=== PATIENT | female | born 1995 | race African-American/Black ===

== ENCOUNTER 2017-01-23 04:40 | Inpatient (IN) ==
[2017-01-23 05:15] LABS: URINE SOURCE VOIDED
[2017-01-23 05:25] LABS: BILIRUBIN URINE NEGATIVE (NEGATIVE); BLOOD URINE NEGATIVE (NEGATIVE); CLARITY CLEAR (CLEAR); COLOR YELLOW; GLUCOSE URINE NEGATIVE (NEGATIVE); LEUKOCYTES URINE TRACE (NEGATIVE); NITRITE URINE NEGATIVE (NEGATIVE); PROTEIN URINE NEGATIVE (NEGATIVE); UROBILINOGEN URINE NORMAL
[2017-01-23 05:26] LABS: UR AMPHETAMINES QUAL NONE DETECTED (NONE DETECT); UR BARBITUATES QUAL NONE DETECTED (NONE DETECT); UR BENZODIAZEPIN QUAL NONE DETECTED (NONE DETECT); UR CANNABINOIDS QUAL NONE DETECTED (NONE DETECT); UR COCAINE QUAL NONE DETECTED (NONE DETECT); UR MDMA QUAL NONE DETECTED (NONE DETECT); UR METHADONE QUAL NONE DETECTED (NONE DETECT); UR METHAMPHETAMINE QUAL NONE DETECTED (NONE DETECT); UR OPIATES QUAL NONE DETECTED (NONE DETECT); UR OXYCODONE QUAL NONE DETECTED (NONE DETECT); UR PCP QUAL NONE DETECTED (NONE DETECT); UR TCA QUAL NONE DETECTED (NONE DETECT)
[2017-01-23] MEDS ORDERED: LR 1,000 ML IV SCH (05:28)
[2017-01-23] MEDS ORDERED: KEFZOL 1 GM/D5W 1 GM/50 ML IVPB IV PRN (05:28)
[2017-01-23] MEDS ORDERED: REGLAN PO ONE (05:28)
[2017-01-23] MEDS ORDERED: PEPCID PO ONE (05:28)
[2017-01-23] MEDS ORDERED: PITOCIN 30 UNITS/LR 30 UNITS/500 ML IV.SOLN IV SCH (05:28)
[2017-01-23] MEDS ORDERED: ZOFRAN IV PRN (05:28)
[2017-01-23] MEDS ORDERED: STADOL IV PRN (05:28)
[2017-01-23] MEDS ORDERED: TYLENOL PO PRN (05:28)
[2017-01-23 06:27] LABS: MANUAL DIFF NEEDED? NO
[2017-01-23 06:40] LABS: EOS# 0.04 X1000 (0.0-0.7); EOS% 0.6 % (0.0-10.0); HEMATOCRIT 34.6 % (37.0-47.0); HEMOGLOBIN 11.5 g/dL (12.0-16.0); IMM GRAN# 0.04 X1000 (0.0-0.04); IMM GRAN% 0.6 % (0.0-0.5); LYMPH# 2.02 X1000 (1.2-3.4); LYMPH% 31.6 % (20.5-51.1); MCH 30.4 PG (27-31); MCHC 33.2 g/dL (33-37); MCV 91.5 FL (81-99); MONO# 0.57 X1000 (0.11-0.59); MONO% 8.9 % (1.7-9.3); MPV 11.4 FL (7.4-10.4); NEUT% 58.3 % (42.2-75.2); PLT 203 X1000 (130-400); RBC 3.78 XMIL (4.2-5.4)
[2017-01-23] MEDS ORDERED: MINERAL OIL PO ONE (07:28)
[2017-01-23] MEDS ORDERED: XYLOCAINE 1% INJ ONE ×2 (07:28→08:37)
[2017-01-23] MEDS ORDERED: FENTANYL-BUPIV-NS 2 MCG-0.1% 200 ML EPIDURAL PRN (07:29)
[2017-01-23] MEDS ORDERED: XYLOCAINE-MPF 1% INJ ONE ×2 (07:45→08:41)
[2017-01-23] MEDS ORDERED: NAROPIN 0.2% ONE (09:37)
[2017-01-23] MEDS ORDERED: BOOSTRIX VACCINE IM ONE (14:35)
[2017-01-23] MEDS ORDERED: MINERAL OIL PO PRN (14:35)
[2017-01-23] MEDS ORDERED: M-M-R II VACCINE SUBQ ONE (14:35)
[2017-01-23] MEDS ORDERED: PITOCIN 20 UNITS/LR 20 UNITS/1,000 ML IV.SOLN IV SCH (14:35)
[2017-01-23] MEDS ORDERED: CYTOTEC PO PRN (14:35)
[2017-01-23] MEDS ORDERED: BENADRYL PO PRN (14:35)
[2017-01-23] MEDS ORDERED: PITOCIN 30 UNITS/LR 30 UNITS/500 ML IV.SOLN IV ONE (14:35)
[2017-01-23] MEDS ORDERED: HYDROXYZINE PO PRN (14:35)
[2017-01-23] MEDS ORDERED: PITOCIN IM PRN (14:35)
[2017-01-23] MEDS ORDERED: HYDROXYZINE IM PRN (14:35)
[2017-01-23] MEDS ORDERED: BENADRYL IV PRN (14:35)
[2017-01-23] MEDS ORDERED: XYLOCAINE-MPF 1% INJ PRN (14:35)
[2017-01-23] MEDS ORDERED: AMBIEN PO PRN (14:35)
[2017-01-23] MEDS ORDERED: PERI MEDS (DERMOPLAST/NUPERCAINAL/TUCKS) MISC PRN (14:35)
--- NOTE | 2017-01-23 14:53 | OPERATIVE NOTE ---
PROCEDURE DATE: 01/23/2017 PREDELIVERY DIAGNOSES: 1. Intrauterine at term. 2. Spontaneous rupture of membranes. POSTDELIVERY DIAGNOSES: 1. Intrauterine at term. 2. Spontaneous rupture of membranes. 3. Nuchal cord x1. 4. Condition stable. PROCEDURE: Vaginal delivery. PHYSICIAN: Dr. Erich Link. ANESTHESIA: Epidural with Dr. Coon. FINDINGS: Viable female , 6 pounds 7 ounces. Do not have Apgars at this time. Three- vessel cord. Placenta was spontaneous, intact. There were no lacerations or tears, and all counts are correct. DESCRIPTION OF PROCEDURE: Ms. Deluna is a 21-year-old primigravida with estimated date of delivery of 02/04/2017, who presented this morning with spontaneous rupture of membranes. She was 3 cm and having contractions. She was augmented, given epidural anesthesia, and made good progress throughout the day, with some deep variables close to delivering. Once complete, she began to push and soon after crowned, at which point the bed was broken down, and she has prepped and draped. With continued pushing, she delivered a viable female occiput anterior over an intact perineum. A tight nuchal cord was reduced with a moderate amount of difficulty. Infant delivered easily after that and placed on mother's abdomen. Cord doubly clamped and cut, and care of was taken over by the nursery personnel. Cord blood was obtained and gentle traction on the cord resulted in delivery of the placenta. It was inspected and found to be intact. Inspection of the perineum and vagina did not reveal any lacerations or tears. Vaginal sweep did not reveal any clots or foreign material. Counts correct. Estimated blood loss was 100 mL. Expect routine . cc: MD Kavya Mcclain MD
[2017-01-23] MEDS: PERICOLACE PO SCH (20:36)
[2017-01-23] MEDS: MOTRIN PO PRN (22:22)
[2017-01-23] MEDS: NORCO-5 PO PRN (22:22)
[2017-01-23] MEDS: NORCO-10 PO PRN (23:49)
[2017-01-24 06:35] LABS: MANUAL DIFF NEEDED? NO
[2017-01-24 06:49] LABS: BASO% 0.1 % (0.0-0.8); EOS# 0.05 X1000 (0.0-0.7); EOS% 0.5 % (0.0-10.0); HEMATOCRIT 32.4 % (37.0-47.0); HEMOGLOBIN 10.6 g/dL (12.0-16.0); IMM GRAN# 0.04 X1000 (0.0-0.04); IMM GRAN% 0.4 % (0.0-0.5); LYMPH# 2.35 X1000 (1.2-3.4); LYMPH% 25.7 % (20.5-51.1); MCH 30.2 PG (27-31); MCHC 32.7 g/dL (33-37); MCV 92.3 FL (81-99); MONO# 0.82 X1000 (0.11-0.59); MPV 11.9 FL (7.4-10.4); NEUT% 64.3 % (42.2-75.2); PLT 204 X1000 (130-400); RBC 3.51 XMIL (4.2-5.4)
[2017-01-24] MEDS: PRECARE PO SCH (08:43)
[2017-01-24] MEDS: NORCO-5 PO PRN (16:58)
[2017-01-24] MEDS: MOTRIN PO PRN (16:58)
[2017-01-24] MEDS: PERICOLACE PO SCH (20:16)
[2017-01-25] MEDS: NORCO-10 PO PRN (01:40)
[2017-01-25] MEDS: MOTRIN PO PRN (01:40)
[2017-01-25] MEDS: PRECARE PO SCH (08:35)
== END 2017-01-25 11:00 | disposition home or self-care (01) ==
LOC: P.OPLD 04:40 → P.LD 04:48 → P.WC 18:12
PROVIDERS: ADMIT Obstetrics & Gynecology; ATTEND Obstetrics & Gynecology